=== PATIENT | male | born 1975 | race Caucasian/White ===

== ENCOUNTER 2016-09-11 14:19 | Emergency (ER) | payer SELFPAY ==
[2016-09-11 14:30] VITALS: BP 123/79
[2016-09-11] MEDS ORDERED: Tetan/Diph/Pertus SYR(Tdap)* 0.5 ML SYR(BOOSTRIX) use SYR IM ONE ×2 (15:11→15:15)
--- NOTE | 2016-09-11 15:29 | UC ---
Abdominal Pain Male HPI - HPI Summary HPI Summary: Patient is a [facility] patient who arrives with CC of LLQ abdominal pain x 2 weeks with severe cough and chest pain with cough. He is aon 2-12mg of Suboxone and ex drug abuser who is still receiving counseling. He denies current drug use other than rx suboxone. LLQ pain is 8/10, constant and stabbing. Chest pain is only present with cough. Endorses sweats and chills, but often will have these symptoms d/t suboxone. Patient of Dr. Pedraza. He states he called and made an appt for this weekend, but slept through the appt, stating he has been sleeping 16 hours per day with difficulty to arouse. He is smoker and c/o cough and was recently diagnosed with bronchitis by the [facility] at [facility]. Given albuterol without relief of symptoms. - History of Current Complaint Chief Complaint: UCRespiratory Stated Complaint: URI Time Seen by Provider: 09/11/16 14:37 Hx Obtained From: Patient Onset/Duration: Gradual Onset Timing: Constant Severity Initially: Moderate Severity Currently: Moderate Pain Intensity: 5 Pain Scale Used: 0-10 Numeric Location: Discrete At: LUQ, Epigastric Radiates: No Character: Aching, Sharp Aggravating Factor(s):: Nothing Alleviating Factor(s): Nothing Associated Signs And Symptoms: Positive: Diaphoresis, Cough, Constipation - Risk Factors Testicular Torsion: Negative Cardiac Risk Factors: Negative - Allergies/Home Medications Allergies/Adverse Reactions: Allergies Allergy/AdvReac Type Severity Reaction Status Date / Time Penicillins [PCN] Allergy Swelling Verified 09/11/16 14:29 Of Face,Lips,& Throat Home Medications: Home Medications Buprenorphine HCl-Naloxone HCl [Suboxone] 1 mis SL BID 09/11/16 [History Confirmed 09/11/16] Citalopram TAB* [CeleXA TAB*] 40 mg PO BEDTIME 09/11/16 [History Confirmed 09/11] Gabapentin [Neurontin 800 mg tab] 800 mg PO QID 09/11/16 [History Confirmed ] Tizanidine HCl 4 mg PO QID 09/11/16 [History Confirmed 09/11/16] PMH/Surg Hx/FS Hx/Imm Hx Previously Healthy: Yes - Surgical History Surgical History: Yes Surgery Procedure, Year, and Place: gall bladder - Family History Known Family History: Positive: Unknown - Social History Occupation: Unemployed Lives: With Family Alcohol Use: Occasionally Alcohol Amount: 1 beer daily Substance Use Type: None Smoking Status (MU): Light Every Day Tobacco Smoker Type: Cigarettes Review of Systems Constitutional: Negative Eyes: Negative Respiratory: Shortness Of Breath, Cough Cardiovascular: Negative Gastrointestinal: Abdominal Pain Neurovascular: Negative Musculoskeletal: Negative Neurological: Negative Psychological: Negative All Other Systems Reviewed And Are Negative: Yes Physical Exam Triage Information Reviewed: Yes Appearance: Well-Appearing, No Pain Distress, Well-Nourished Vital Signs: Initial Vital Signs Temp 95.3 F 09/11/16 14:23 Pulse 93 09/11/16 14:23 Resp 18 09/11/16 14:23 BP 123/79 09/11/16 14:23 Pulse Ox 98 09/11/16 14:23 Vital Signs Reviewed: Yes Eye Exam: Normal Neck exam: Normal Neck: Positive: Supple Respiratory: Positive: Rhonchi Cardiovascular Exam: Normal Cardiovascular: Positive: RRR Abdomen Description: Positive: Soft, Other: - epigastric pain; LLQ pain on palpation; normal bowel sounds Musculoskeletal Exam: Normal Musculoskeletal: Positive: Strength Intact Psychological Exam: Normal Psychological: Positive: Normal Response To Family Skin Exam: Normal Abd Pain Male Course/Dx - Course Course Of Treatment: Patient evaluated for abdominal pain and chest pain with cough and diaphoresis. He is on suboxone 2 - 12mg tablets per day through Dr. Pedraza and continues to go to [facility] twice per week. Advised the patient cannot r/o diverticulitis or other pathologies of LLQ pain, but will get Xray to assess for constipation. Xray of abd shows large amount of stool in the colon with free air. Chest Xray shows no pathologies. Rx for Magnesium Citrate , senna for 2 days after mag citrate and increased water intake. Fiber foods encouraged and list given. Follow up to ED tomorrow if symptoms persist despite mag citrate. Patient made aware of results and plan and is OK with discharge. Medications reviewed with patient. - Differential Dx/Clinical Impression Differential Diagnosis/HQI/PQRI: Bowel Obstruction, Hepatitis, Ischemic Bowel, Urinary Tract Infection Provider Diagnoses: Constipation Discharge - Discharge Plan Condition: Stable Disposition: HOME Prescriptions: Magnesium CITRATE* [Citrate of Magnesia*] 300 ml PO ONCE #1 btl Senna TAB* [Senokot TAB*] 1 tab PO BEDTIME PRN #10 tab PRN Reason: Constipation Patient Education Materials: Magnesium Citrate (By mouth), Constipation (ED), High Fiber Diet (ED) Forms: *Gen. Provider Communication Referrals: Ramírez Pedraza MD [Medical Doctor] - No Primary Care Phys,NOPCP [Primary Care Provider] - Additional Instructions: Foods to Eat: Split Peas. Fiber: 16.3 grams per cup, cooked. ... Lentils. Fiber: 15.6 grams per cup, cooked. ... Black Beans. Fiber: 15 grams per cup, cooked. ... Rothman Beans. Fiber: 13.2 grams per cup, cooked. ... Artichokes. Fiber: 10.3 grams per medium vegetable, cooked. ... Peas. ... Broccoli. ... [place] Sprouts. Barley... 7 grain unbleached bread Follow up with Dr. Pedraza this week or next week. Drink 3 liters or more of water per day. Magnesium citrate as prescribed Senna every other night, then every third night, and so on until feeling improved.
--- NOTE | 2016-09-11 15:30 | RAD ---
HISTORY: Chest pain, cough, fever COMPARISONS: August 25, 2009 VIEWS: 2: Frontal dual-energy and lateral views of the chest. FINDINGS: CARDIOMEDIASTINAL SILHOUETTE: The cardiomediastinal silhouette is normal. KEVIN: The kevin are normal. PLEURA: The costophrenic angles are sharp. No pleural abnormalities are noted. LUNG PARENCHYMA: The lungs are clear. ABDOMEN: The upper abdomen is clear. There is no subphrenic gas. BONES AND SOFT TISSUES: No bone or soft tissue abnormalities are noted. OTHER: None. IMPRESSION: NO ACTIVE CARDIOPULMONARY DISEASE.
--- NOTE | 2016-09-11 15:40 | RAD ---
HISTORY: Abdominal pain COMPARISONS: CT dated August 31, 2010 VIEWS: Frontal supine and upright views of the abdomen. FINDINGS: BOWEL: There is a nonobstructive bowel gas pattern. There is a large amount of stool within the colon. CALCULI: There are no abnormal calculi. BONES AND SOFT TISSUES: Degenerative changes are noted OTHER FINDINGS: The lung bases are clear. There is no subphrenic gas. IMPRESSION: NONOBSTRUCTIVE BOWEL GAS PATTERN. LARGE AMOUNT OF STOOL WITHIN THE COLON.
== END 2016-09-11 16:11 | disposition home or self-care (01) ==
LOC: UCEAST 14:19
DX: K59.00 Constipation, unspecified (principal); F17.210 Nicotine dependence, cigarettes, uncomplicated; Z79.891 Long term (current) use of opiate analgesic
CPT/HCPCS: 71020; 74020; 90715; 99212; G0463

== ENCOUNTER 2016-09-12 09:01 | Emergency (ER) | payer OTHER ==
--- NOTE | 2016-09-12 10:07 | ED ---
Abdominal Pain/Male - HPI Summary HPI Summary: Pt here w/ LLQ ab pain x 1 week. Started as mild irritation but worse past couple of days. Admits to smaller, less complete BM's since increasing suboxone from 8mg to 12 mg. Last BM today - small, soft. Has not been taking medications (ie stool softener, laxatives, etc) to help w/ constipation but was seen at yesterday and recommended he take mag citrate w/ senna. Has not taken this yet as he was unable to get to pharmacy (lives in [place] and requires medicaid cab) . Had an ab XR yesterday revealing no signs of obstruction but did have a large amount of stool present. Pt denies fever, chills, N/V/D, hematochezia but has been quite fatigued over the weekend - sleeping much more than usual. H/o cholecystectomy 2006 - has cut back on fried foods - reports he only has pain w / eating "cheap burger" since surgery until recently. Reports indigestion and "egg burps" w/ vomiting at times if he eats too much greasy food over the past year. No known h/o liver issues, pancreatitis, bowel obstruction, diverticulitis or other diagnosed digestive issues. 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 Pain Intensity: 4 - Allergies/Home Medications Allergies/Adverse Reactions: Allergies Allergy/AdvReac Type Severity Reaction Status Date / Time Penicillins [PCN] Allergy Swelling Verified 09/12/16 09:20 Of Face,Lips,& Throat PMH/Surg Hx/FS Hx/Imm Hx Previously Healthy: Yes Endocrine/Hematology History: Denies: Hx Anticoagulant Therapy, Hx Blood Disorders, Hx Diabetes, Autoimmune Disease Respiratory History: Denies: Hx Asthma, Hx Chronic Obstructive Pulmonary Disease (COPD) GI History: Reports: Hx Gall Bladder Disease - h/o cholecystectomy Denies: Hx Cirrhosis, Hx Crohn's Disease, Hx Diverticulosis, Hx Gastrointestinal Bleed, Hx Hiatal Hernia, Hx Irritable Bowel, Hx Jaundice, Hx Obstructive Bowel, Hx Ulcer History: Denies: Hx Acute Renal Failure, Hx Kidney Infection, Hx Kidney Stones Musculoskeletal History: Reports: Hx Back Problems - DDD - "sciatica" - has had "scan", Other Musculoskeletal History Opthamlomology History: Reports: Other Sensory Impairments - blind Psychiatric History: Reports: Hx Substance Abuse - h/o opioid use - curretly controlled w/ suboxone - Surgical History Surgery Procedure, Year, and Place: cholecystectomy 2006 Infectious Disease History: No Infectious Disease History: Denies: Hx Clostridium Difficile, Hx Hepatitis, Hx Human Immunodeficiency Virus (HIV), Traveled Outside the [place] in Last 30 Days - Family History Known Family History: Positive: Unknown - Social History Occupation: Disabled - legally blind Lives: With Family Alcohol Use: None Hx Substance Use: Yes Substance Use Type: Reports: Heroin - not currently using Hx Tobacco Use: Yes Smoking Status (MU): Current Every Day Smoker Type: Cigarettes Amount Used/How Often: 1PPD Review of Systems Positive: Fatigue - see HPI. Negative: Fever, Chills Negative: Drainage, Erythema ENT: Other - URI sx - improving from previous visit Negative: Sore Throat, Ear Ache Cardiovascular: Negative Positive: Cough - recovering from URI Gastrointestinal: Other - see HPI Negative: dysuria, discharge, frequency, flank pain Musculoskeletal: Other - h/o sciatica Skin: Negative Neurological: Negative Psychological: Normal All Other Systems Reviewed And Are Negative: Yes Physical Exam Triage Information Reviewed: Yes Vital Signs On Initial Exam: Initial Vitals Temp Pulse Resp BP Pulse Ox 97.7 F 90 20 123/73 94 09/12/16 09:02 09/12/16 09:02 09/12/16 09:02 09/12/16 09:02 09/12/16 09:02 Vital Signs Reviewed: Yes Appearance: Positive: Well-Appearing, No Pain Distress, Obese Skin: Positive: Warm, Dry Head/Face: Positive: Normal Head/Face Inspection Eyes: Positive: Conjunctiva Clear, Other: - amblyopia ENT: Positive: Hearing grossly normal Dental: Positive: Gross Decay/Caries @ Respiratory/Lung Sounds: Positive: Breath Sounds Present, Wheezes - mid Lt lobe. Negative: Decreased Breath Sounds, Rales, Rhonchi, Stridor Cardiovascular: Positive: Normal, RRR Abdomen Description: Positive: Other: - vast ab girth - TTP over epigastric region and continues along LUQ, Lt side and LLQ - no rebounding; RLQ NTTP Bowel Sounds: Positive: Hypoactive Musculoskeletal: Positive: Normal, Strength/ROM Intact Neurological: Positive: Sensory/Motor Intact, Alert, Oriented to Person Place, Time Psychiatric: Positive: Normal - Santana Coma Scale Coma Scale Total: 15 Diagnostics - Vital Signs Vital Signs Temp Pulse Resp BP Pulse Ox 09/12/16 09:15 87 96 09/12/16 09:13 134/82 09/12/16 09:06 97.7 F 84 20 123/73 95 09/12/16 09:02 97.7 F 90 20 123/73 94 - Laboratory Result Diagrams: 09/12/16 10:50 09/12/16 13:11 Lab Statement: Any lab studies that have been ordered have been reviewed, and results considered in the medical decision making process. Re-Evaluation - Re-Evaluation First Eval Change: Improved - pt reports BM during his course of stay - small but did provide some relief. Abdominal Pain Fem Course/Dx - Course Course Of Treatment: Pt presents w/ constipation and Lt sided ab pain x days. He has not tried constipation medication as directed as he couldn't get a ride to pharmacy. Concerned about diverticulitis and agrees to CT scan. Upon reviewing labs and scan, pt appears to have fatty liver, constipation and diverticulosis w/o diverticulitis. These findings correlate with pt's sx and lifestyle habits. Encouraged diet changes to healthy fats and in moderation - discussion about alternatives to current fats consumed. Also reviewed importance of controlling constipation w/ diet, supplements, and may benefit from reducing suboxone. Pt agrees to try mag citrate here today and f/u w/ PCP. If still no BM and pain worsens, will return to ED. - Diagnoses Provider Diagnoses: Constipation, Fatty liver, Diverticulosis Discharge - Discharge Plan Condition: Stable Disposition: HOME Patient Education Materials: Constipation (ED), Diverticulosis (ED), Non- Alcoholic Fatty Liver Disease (ED) Forms: *Work Release Referrals: Ramírez Pedraza MD [Medical Doctor] - Additional Instructions: You appear to have constipation today - this may be addressed by taking magnesium citrate as soon as you get home which should trigger bowel movement(s ) within 12-24 hours. If you develop diarrhea, drink gatorade to prevent dehydration. If you do not have a satisfying bowel movement, please continue a daily laxative supplement. You may try combining both miralax and citrucel, 1/2 scoop of each with plenty of water. It was discussed that the cause of your constipation may be from an increase in your suboxone dose from 8mg to 12 mg. You also shared that you have been fatigued over the weekend which could be a result of too high of a dose of suboxone. Please discuss with PCP. You were also found to have diverticulosis, a condition triggered by constipation. Furthermore, you appear to have a fatty liver. You may control both of these conditions by diet. Discuss with PCP or seek nutrition consult. Please call PCP today to schedule appointment for follow-up within 1 week. *If you develop severe abdominal pain, fever, intractable vomiting, return to ED
[2016-09-12 10:59] LABS: Hematocrit 45 % (42-52); Hemoglobin 15.1 g/dl (14.0-18.0); Mean Corpuscular HGB Conc 34 g/dl (31-36); Mean Corpuscular Hemoglobin 30 pg (27-31); Mean Corpuscular Volume 90 fL (80-94); Mean Platelet Volume 8 um3 (7.4-10.4); Red Blood Count 5.01 10^6/ul (4.0-5.4); Red Cell Distribution Width 14 % (10.5-15); White Blood Count 11.2 10^3/ul (3.5-10.8)
[2016-09-12 11:08] LABS: Add Diff/Slide Review? Slide Review Added; Comments Flag Yes
[2016-09-12 13:13] LABS: Urine Bacteria Absent (Absent); Urine Bilirubin Negative (Negative); Urine Glucose Negative (Negative); Urine Nitrite Negative (Negative)
[2016-09-12 13:44] LABS: Albumin 3.7 g/dL (3.2-5.2); BUN/Creatinine Ratio 12.2 (8-20); C Reactive Protein 19.63 mg/L (< 5.00); Calcium 9.3 mg/dL (8.6-10.3); EGFR Non-African American 92.5 (>60); Globulin 3.5 g/dL (2-4); Potassium 4.5 mmol/L (3.5-5.0); Total Bilirubin 0.4 mg/dL (0.2-1.0); Total Protein 7.2 g/dL (6.4-8.9)
[2016-09-12] MEDS ORDERED: Iohexol 300* (CONTRAST) 10 ML SDV IV ONE (14:10)
--- NOTE | 2016-09-12 14:57 | RAD ---
INDICATION: Left lower quadrant abdominal pain constipation and fatigue. COMPARISON: Comparison is made with a prior CT of the abdomen and pelvis from June 01, 2010. TECHNIQUE: A CT scan of the abdomen and pelvis was performed with intravenous and oral contrast following intravenous injection of 145 ml of Omnipaque 300 nonionic contrast. Contiguous axial sections were obtained from the lung bases through the symphysis pubis. Images were reconstructed in the coronal and sagittal planes. FINDINGS: The lung bases are clear. No pleural effusion is present. The liver and spleen are normal in size without significant focal abnormality. The liver is decreased in attenuation consistent with fatty infiltration. The patient is status post cholecystectomy. The pancreas appears to be within normal limits. The kidneys and adrenal glands are normal in size. No hydronephrosis is seen. No significant focal renal abnormality is seen. The aorta is normal in caliber and demonstrates homogeneous contrast opacification. No significant enlarged retroperitoneal lymph nodes are seen. The stomach, small and large bowel appear nondistended. The appendix is within normal limits. There is mild descending and sigmoid diverticulosis without evidence for diverticulitis. There is no evidence for colitis. There is a small periumbilical hernia containing fat. There are small bilateral inguinal hernias containing fat. No free intraperitoneal air or fluid is seen. No significant focal osseous abnormality is seen. IMPRESSION: 1. NO EVIDENCE FOR ACUTE INTRA-ABDOMINAL ABNORMALITY OR CAUSE FOR THE PATIENT'S ABDOMINAL PAIN IS SEEN. 2. STATUS POST CHOLECYSTECTOMY AND HEPATIC STEATOSIS.
[2016-09-12] MEDS ORDERED: Magnesium CITRATE* 300 ML BTL PO ONE (15:58)
[2016-09-12 16:30] VITALS: BP 121/72
== END 2016-09-12 16:30 | disposition home or self-care (01) ==
LOC: ED 09:01
DX: K57.90 Diverticulosis of intestine, part unspecified, without perforation or abscess without bleeding (principal); R10.32 Left lower quadrant pain; K59.00 Constipation, unspecified; K76.0 Fatty (change of) liver, not elsewhere classified
CPT/HCPCS: 36415; 74177; 80053; 81003; 81015; 82150; 83605; 83690; 85025; 86140; 87086; 99284; A9270-GY; Q9967

== ENCOUNTER 2016-10-23 10:43 | Emergency (ER) | payer OTHER ==
[2016-10-23 11:35] VITALS: BP 134/90
--- NOTE | 2016-10-23 12:45 | UC ---
Respiratory Complaint HPI - HPI Summary HPI Summary: 41 y/o blind male who presents to the urgent care c/o persistent productive cough w/ SOB since 10/19/2016. Pt states cough is producing a green phlegm,w/ sinus congestion and yellowish nasal drainage. He hasn't taking his temp, but he has felt hot at home. Pt has been taking Tylenol, Dayquil at home to alleviate symptoms. He states he has pneumonias in the past. Pt denies SOB, chest pain, abdominal pain, N/V/D. Pt has not other complains - History of Current Complaint Chief Complaint: UCRespiratory Stated Complaint: URI Time Seen by Provider: 10/23/16 12:15 Hx Obtained From: Patient Onset/Duration: Gradual Onset, Lasting Days, Still Present Timing: Constant Severity Initially: Mild Severity Currently: Moderate Pain Intensity: 0 Pain Scale Used: 0-10 Numeric Character: Cough: Productive - yellowish phlegm Aggravating Factors: Nothing Alleviating Factors: OTC Meds Associated Signs And Symptoms: Positive: Fever - at home, Nasal Congestion. Negative: Dyspnea, Wheezing - Risk Factors Pulmonary Embolism Risk Factors: Negative Cardiac Risk Factors: Negative Pseudomonas Risk Factors: Negative Tuberculosis Risk Factors: Negative - Allergies/Home Medications Allergies/Adverse Reactions: Allergies Allergy/AdvReac Type Severity Reaction Status Date / Time Penicillins [PCN] Allergy Swelling Verified 10/23/16 11:35 Of Face,Lips,& Throat PMH/Surg Hx/FS Hx/Imm Hx Previously Healthy: Yes Other GI/ History: constipation Other History Of: Negative For: Anticoagulant Therapy - Surgical History Surgical History: Yes Surgery Procedure, Year, and Place: cholecystectomy 2006 - Family History Known Family History: Positive: Hypertension - Social History Occupation: Disabled Lives: With Family Alcohol Use: Occasionally Alcohol Amount: 1 beer daily Substance Use Type: None, Heroin Smoking Status (MU): Current Every Day Smoker Type: Cigarettes Amount Used/How Often: 1PPD Review of Systems Constitutional: Fever - mild at home Skin: Negative Eyes: Negative ENT: Nasal Discharge - yellow Respiratory: Cough - productive w/ yellowish discharge Cardiovascular: Negative Gastrointestinal: Negative Genitourinary: Negative Motor: Negative Neurovascular: Negative Musculoskeletal: Negative Neurological: Negative Psychological: Negative All Other Systems Reviewed And Are Negative: Yes Physical Exam Triage Information Reviewed: Yes Appearance: Well-Appearing, No Pain Distress, Well-Nourished, Obese Vital Signs: Initial Vital Signs Temp 98.5 F 10/23/16 11:29 Pulse 95 10/23/16 11:29 Resp 18 10/23/16 11:29 BP 134/90 10/23/16 11:29 Pulse Ox 97 10/23/16 11:29 Vital Signs Reviewed: Yes Eye Exam: Normal Eyes: Positive: Conjunctiva Clear - PERRLA, fundi grossly normal ENT: Positive: Normal ENT inspection, Hearing grossly normal, Pharynx normal, Nasal congestion - edematous nasal mucosa, Nasal drainage - clear, TMs normal. Negative: Tonsillar swelling, Tonsillar exudate Dental Exam: Normal Neck exam: Normal Neck: Positive: Supple, Nontender, No Lymphadenopathy Respiratory Exam: Normal Respiratory: Positive: Chest non-tender, Lungs clear, Normal breath sounds Cardiovascular Exam: Normal Cardiovascular: Positive: RRR, No Murmur, Pulses Normal, Brisk Capillary Refill Abdominal Exam: Normal Abdomen Description: Positive: Nontender, No Organomegaly, Soft. Negative: CVA Tenderness (R), CVA Tenderness (L) Bowel Sounds: Positive: Present Musculoskeletal Exam: Normal Musculoskeletal: Positive: Strength Intact, ROM Intact, No Edema Neurological Exam: Normal Psychological Exam: Normal Skin Exam: Normal UC Diagnostic Evaluation - Laboratory O2 Sat by Pulse Oximetry: 97 Respiratory Course/Dx - Course Course Of Treatment: 41 y/o blind male who presents to the urgent care c/o persistent productive cough w/ SOB since 10/19/2016. Pt states cough is producing a green phlegm,w/ sinus congestion and yellowish nasal drainage. He hasn't taking his temp, but he has felt hot at home. Pt has been taking Tylenol , Dayquil at home to alleviate symptoms. He states he has pneumonias in the past. Pt denies SOB, chest pain, abdominal pain, N/V/D. Hx obtained. Chest X- ray ordered since Pt HX of pneumonias. Chest X-ray impression: no active pulmonary disease. Pt Rx tessalon tabs PO and Albuterol inhaler to alleviate symptoms of cough and bronchospasm. Pt BP mildy elevated , advised to decrease salt in diet and monitor BP if continues to be elevated to f/u with his PCP. Pt D/C home stable and advised to increase fluid intake, rest and if symptoms do not improve to f/u with PCP for further evaluation and treatment. Pt understood and agreed. - Differential Dx/Diagnosis Differential Diagnosis/HQI/PQRI: Asthma, Bronchitis, Influenza, Laryngitis, Lower Resp Infection, Sinusitis Provider Diagnoses: 1- upper respiratory infection. 2-Elevated blood pressure w /o Hx of HTN Discharge - Discharge Plan Condition: Stable Disposition: HOME Prescriptions: Albuterol HFA INHALER* [Ventolin HFA Inhaler*] 1 - 2 puff INH Q4H PRN #1 mdi PRN Reason: Cough Benzonatate CAP* [Tessalon 100 MG CAP*] 100 mg PO TID #21 cap Fluticasone NASAL SPRAY 50MCG* [Flonase NASAL SPRAY 50MCG*] 2 spray BOTH NARES DAILY #1 btl Patient Education Materials: Upper Respiratory Infection (ED), Low Sodium Diet (ED) Forms: *Work Release Referrals: Ramírez Pedraaz MD [Primary Care Provider] - If Needed Additional Instructions: 1-Please take your medications as directed to alleviate symptoms of URI. Increase fluid intake rest and eat well. If symptoms do not improve or worsen please f/u with your PCP for further evaluation and treatment. 2- Your BP today is mildly elevated today, decrease salt in your diet and f/u with your PCP for further management
--- NOTE | 2016-10-23 13:19 | RAD ---
HISTORY: Shortness of breath and chest congestion COMPARISONS: September 11, 2016 VIEWS: 4: Frontal dual-energy and lateral views of the chest. FINDINGS: CARDIOMEDIASTINAL SILHOUETTE: The cardiomediastinal silhouette is normal. KEVIN: The kevin are normal. PLEURA: The costophrenic angles are sharp. No pleural abnormalities are noted. LUNG PARENCHYMA: The lungs are clear. ABDOMEN: The upper abdomen is clear. There is no subphrenic gas. BONES AND SOFT TISSUES: No bone or soft tissue abnormalities are noted. OTHER: None. IMPRESSION: NO ACTIVE CARDIOPULMONARY DISEASE.
== END 2016-10-23 14:15 | disposition home or self-care (01) ==
LOC: UCEAST 10:43
DX: J06.9 Acute upper respiratory infection, unspecified (principal); R03.0 Elevated blood-pressure reading, without diagnosis of hypertension; K59.00 Constipation, unspecified; F17.210 Nicotine dependence, cigarettes, uncomplicated; E66.9 Obesity, unspecified; Z90.49 Acquired absence of other specified parts of digestive tract; Z88.0 Allergy status to penicillin
CPT/HCPCS: 71020; 99212; G0463

== ENCOUNTER 2018-01-07 11:56 | Emergency (ER) | payer MEDICARE, MEDICAID ==
[2018-01-07 12:57] VITALS: BP 125/71
--- NOTE | 2018-01-07 13:06 | UC ---
Respiratory Complaint HPI - HPI Summary HPI Summary: This patient is a 42 year old M [place] [facility] [place] his girlfriend with a chief complaint of URI sx for the last three days. The patient rates the pain 5/10 in severity. Symptoms alleviated by ibuprofen. Patient reports fever, congestion, cough, SOB, pain with coughing, and productive cough. - History of Current Complaint Chief Complaint: UCRespiratory Stated Complaint: FEVER SORE THROAT COUGH Time Seen by Provider: 01/07/18 12:33 Hx Obtained From: Patient Onset/Duration: Lasting Days - 3, Still Present Timing: Constant Severity Currently: Moderate Pain Intensity: 5 Pain Scale Used: 0-10 Numeric Character: Cough: Productive Alleviating Factors: OTC Meds Associated Signs And Symptoms: Positive: Fever, URI - Allergies/Home Medications Allergies/Adverse Reactions: Allergies Allergy/AdvReac Type Severity Reaction Status Date / Time Penicillins Allergy Swelling Verified 01/07/18 12:57 Of Face,Lips,& Throat PMH/Surg Hx/FS Hx/Imm Hx - Additional Past Medical History Additional PMH: visually impaired, Neurological History: Other Other Neurological History: nerve damage Psychological History: Anxiety, Depression, Post Traumatic Stress Disorder Other History Of: Negative For: Anticoagulant Therapy - Surgical History Surgical History: Yes Surgery Procedure, Year, and Place: cholecystectomy 2006 - Family History Known Family History: Positive: Unknown, Hypertension - Social History Alcohol Use: Occasionally Alcohol Amount: 1 beer daily Substance Use Type: Prescribed Substance Use Comment - Amount & Last Used: suboxone Smoking Status (MU): Former Smoker Type: Cigarettes Amount Used/How Often: 1PPD When Did the Patient Quit Smoking/Using Tobacco: vapes now Review of Systems Constitutional: Fever, Fatigue ENT: Sinus Congestion Respiratory: Shortness Of Breath, Cough, Other - pain with coughing All Other Systems Reviewed And Are Negative: Yes Physical Exam - Summary Physical Exam Summary: VITAL SIGNS: Reviewed. GENERAL: Patient is a well-developed and nourished male who is lying comfortable in the stretcher. Patient is not in any acute respiratory distress. HEAD AND FACE: Normocephalic EYES: PERRLA, EOMI x 2. EARS: Hearing grossly intact. MOUTH: Oropharynx within normal limits. NECK: Supple, trachea is midline, no adenopathy, no JVD, no carotid bruit. CHEST: Symmetric, no tenderness at palpation LUNGS: Coarse breath sounds CVS: Regular rate and rhythm, S1 and S2 present, no murmurs or gallops appreciated. ABDOMEN: Soft, non-tender. Bowel sounds are normal. No abdominal abnormal pulsations. EXTREMITIES: Full ROM in all major joints, no edema, no cyanosis or clubbing. NEURO: Alert and oriented x 3. No acute neurological deficits. Speech is normal and follows commands. SKIN: Dry and warm Triage Information Reviewed: Yes Vital Signs: Initial Vital Signs Temp 97.5 F 01/07/18 12:52 Pulse 95 01/07/18 12:52 Resp 20 01/07/18 12:52 BP 125/71 01/07/18 12:52 Pulse Ox 94 01/07/18 12:52 Vital Signs Reviewed: Yes Diagnostic Evaluation - Laboratory O2 Sat by Pulse Oximetry: 94 - Radiology Radiology Interpretation Completed By: Radiologist - CXR:NO ACTIVE CARDIOPULMONARY DISEASE. Dr Miller has reviewed this report. Respiratory Course/Dx - Course Course Of Treatment: Patient is a 42-year-old male who presents to the urgent care with chief complaint of having cough with occasional phlegm. He reports fever however is only tactile fever. Chest x-ray impression: No acute pathology. Rapid strep is negative. I believe the patient has a viral infection therefore he will be given a prescription for Tessalon tablets on follow-up with the primary care physician. Patient was instructed to go to the ED or follow-up with the primary care physician office if the patient develops any chest pain, fevers, worsening symptoms. He understands and verbalizes understanding. - Differential Dx/Diagnosis Provider Diagnoses: Bronchitis Discharge - Sign-Out/Discharge Documenting (check all that apply): Patient Departure All imaging exams completed and their final reports reviewed: Yes - Discharge Plan Condition: Stable Disposition: HOME Prescriptions: Benzonatate CAP* [Tessalon 100 MG CAP*] 100 mg PO TID PRN #12 cap PRN Reason: Cough Patient Education Materials: Acute Bronchitis (ED) Forms: *Gen. Provider Communication Referrals: Farheen Kasper MD [Primary Care Provider] - Additional Instructions: Take medications as instructed and adhere to plan Take Acetaminophen or ibuprofen for pain or fever Increase your fluid intake Return to the or go to the emergency department if symptoms worsen Follow-up with primary care physician in next 2-3 days - Billing Disposition and Condition Condition: STABLE Disposition: Home - Attestation Statements Document Initiated by Scribe: Yes Documenting Scribe: Steven Thompson Provider For Whom Scribe is Documenting (Include Credential): Polo Miller MD Scribe Attestation: I, Steven Thompson , scribed for Polo Miller MD on 01/07/18 at 1341. Scribe Documentation Reviewed: Yes Provider Attestation: The documentation as recorded by the Steven garcia accurately reflects the service I personally performed and the decisions made by me, Polo Miller MD
--- NOTE | 2018-01-07 13:27 | RAD ---
HISTORY: cough COMPARISONS: October 23, 2016 VIEWS: 4: Frontal dual-energy and lateral views of the chest. FINDINGS: CARDIOMEDIASTINAL SILHOUETTE: The cardiomediastinal silhouette is normal. KEVIN: The kevin are normal. PLEURA: The costophrenic angles are sharp. No pleural abnormalities are noted. LUNG PARENCHYMA: The lungs are clear. ABDOMEN: The upper abdomen is clear. There is no subphrenic gas. BONES AND SOFT TISSUES: No bone or soft tissue abnormalities are noted. OTHER: None. IMPRESSION: NO ACTIVE CARDIOPULMONARY DISEASE.
== END 2018-01-07 14:08 | disposition home or self-care (01) ==
LOC: UCEAST 11:56
DX: J40 Bronchitis, not specified as acute or chronic (principal); Z88.0 Allergy status to penicillin; Z87.891 Personal history of nicotine dependence
CPT/HCPCS: 71046; 87651; 99212; G0463

== ENCOUNTER 2022-02-20 09:44 | Inpatient (IN) ==
[2022-02-20] MEDS ORDERED: NS 0.9% 1000 ml BAG 1,000 ML IV ONE (09:58)
[2022-02-20] MEDS ORDERED: Dexamethasone IV 4 MG/ML VIAL 1 ml VIAL IV SLOW PU ONE (09:59)
[2022-02-20 13:08] LABS: Hematocrit 45 % (42-52); Hemoglobin 14.6 g/dL (14.0-18.0); Mean Corpuscular HGB Conc 33 g/dL (31-36); Mean Corpuscular Hemoglobin 28 pg (27-31); Mean Corpuscular Volume 85 fL (80-94); Mean Platelet Volume 7.6 fL (7.4-10.4); Platelet Count 504 10^3/uL (150-450); Red Blood Count 5.26 10^6 /uL (4.18-5.48); Red Cell Distribution Width 15 % (10-15); White Blood Count 18.8 10^3/uL (3.5-10.8)
[2022-02-20 13:37] LABS: Albumin 3.6 g/dL (3.2-5.2); C Reactive Protein 247.79 mg/L (<8.01); Calcium 9.2 mg/dL (8.6-10.3); Globulin 3.7 g/dL (2-4); Potassium 3.7 mmol/L (3.5-5.0); Total Bilirubin 0.6 mg/dL (0.2-1.0); Total Protein 7.3 g/dL (6.4-8.9); eGFR CKD-EPI 115.2 (>60)
[2022-02-20 14:26] LABS: ABS Lymphocytes 1.4 10^3/ul (1.0-4.8); ABS Monocytes 1.9 10^3/ul (0-0.8); ABS Neutrophils 15.5 10^3/ul (1.5-7.7); Eosinophil % 0.2 %; Lymphocyte % 7.4 %; Nucleated Red Blood Cells % 0.2
[2022-02-20 14:28] LABS: RBC Morphology Normal (Normal)
[2022-02-20 14:37] LABS: High Sensitivity Troponin 1 Hr 5 pg/mL (<20)
[2022-02-20 21:09] LABS: Hepatitis C Antibody Reactive (Negative)
[2022-02-20] MEDS: Buprenorp/Nalox 8-2 MG SL TAB SL SCH (22:05)
[2022-02-20] MEDS: Enoxaparin 40 MG/0.4 ML SYR SUBCUT SCH (22:05)
[2022-02-21 06:17] LABS: Hematocrit 40 % (42-52); Hemoglobin 13.5 g/dL (14.0-18.0); Mean Corpuscular HGB Conc 34 g/dL (31-36); Mean Corpuscular Hemoglobin 28 pg (27-31); Mean Corpuscular Volume 84 fL (80-94); Mean Platelet Volume 7.6 fL (7.4-10.4); Platelet Count 483 10^3/uL (150-450); Red Blood Count 4.76 10^6 /uL (4.18-5.48); Red Cell Distribution Width 15 % (10-15)
[2022-02-21 06:35] LABS: ABS Eosinophils 0.1 10^3/ul (0-0.6); ABS Lymphocytes 2.3 10^3/ul (1.0-4.8); ABS Monocytes 2.2 10^3/ul (0-0.8); ABS Neutrophils 14.4 10^3/ul (1.5-7.7); Eosinophil % 0.3 %; Lymphocyte % 11.9 %; Nucleated Red Blood Cells % 0.1
[2022-02-21 06:38] LABS: Potassium 3.9 mmol/L (3.5-5.0); eGFR CKD-EPI 114.7 (>60)
[2022-02-21] MEDS: Venlafaxine XR 75 mg PO SCH (08:53)
[2022-02-21] MEDS: Buprenorp/Nalox 8-2 MG SL TAB SL SCH ×2 (08:53→20:34)
[2022-02-21] MEDS: Enoxaparin 40 MG/0.4 ML SYR SUBCUT SCH (20:32)
[2022-02-22 06:30] LABS: Hematocrit 38 % (42-52); Hemoglobin 12.7 g/dL (14.0-18.0); Mean Corpuscular HGB Conc 34 g/dL (31-36); Mean Corpuscular Hemoglobin 28 pg (27-31); Mean Corpuscular Volume 84 fL (80-94); Mean Platelet Volume 7.6 fL (7.4-10.4); Platelet Count 410 10^3/uL (150-450); Red Blood Count 4.52 10^6 /uL (4.18-5.48); Red Cell Distribution Width 15 % (10-15); White Blood Count 19.9 10^3/uL (3.5-10.8)
[2022-02-22] MEDS ORDERED: guaiFENesin 100 mg/5 ml LIQ unit dose cup PO ONE (08:33)
[2022-02-22] MEDS: Venlafaxine XR 75 mg PO SCH (10:51)
[2022-02-22] MEDS: Buprenorp/Nalox 8-2 MG SL TAB SL SCH ×2 (10:51→21:03)
[2022-02-22] MEDS ORDERED: Vancomycin 1,000 MG in NS 0.9% 250 ml 250 ML IVPB ONE (15:00)
[2022-02-22] MEDS ORDERED: Furosemide 20 mg/2 ml IV VIAL IV ONE (15:04)
[2022-02-22] MEDS: guaiFENesin 100 mg/5 ml LIQ unit dose cup PO PRN (16:31)
[2022-02-22] MEDS: methylPREDNISolone SOD SUCC 40 mg/ml 1 ml VIAL IV SCH (18:59)
[2022-02-22] MEDS: Enoxaparin 40 MG/0.4 ML SYR SUBCUT SCH (21:01)
[2022-02-23] MEDS: Vancomycin 1000 MG in NS 0.9% 250 ML IVPB SCH ×3 (00:38→15:18)
[2022-02-23] MEDS: methylPREDNISolone SOD SUCC 40 mg/ml 1 ml VIAL IV SCH ×3 (02:30→17:17)
[2022-02-23 07:17] LABS: Hematocrit 36 % (42-52); Hemoglobin 12.5 g/dL (14.0-18.0); Mean Corpuscular HGB Conc 34 g/dL (31-36); Mean Corpuscular Hemoglobin 29 pg (27-31); Mean Corpuscular Volume 83 fL (80-94); Mean Platelet Volume 7.3 fL (7.4-10.4); Platelet Count 394 10^3/uL (150-450); Red Blood Count 4.37 10^6 /uL (4.18-5.48); Red Cell Distribution Width 15 % (10-15); White Blood Count 20.2 10^3/uL (3.5-10.8)
[2022-02-23 08:02] LABS: Calcium 8.5 mg/dL (8.6-10.3); eGFR CKD-EPI 116.8 (>60)
[2022-02-23] MEDS: Buprenorp/Nalox 8-2 MG SL TAB SL SCH ×2 (08:38→20:22)
[2022-02-23] MEDS: Venlafaxine XR 75 mg PO SCH (08:39)
[2022-02-23] MEDS ORDERED: Magnesium Hydroxide LIQ 30 ML UDC PO ONE (09:15)
[2022-02-23] MEDS: Nicotine PATCH 14 MG/24 HR PATCH TRANSDERM SCH (17:17)
[2022-02-23] MEDS: Enoxaparin 40 MG/0.4 ML SYR SUBCUT SCH (20:22)
[2022-02-24] MEDS: Vancomycin 1000 MG in NS 0.9% 250 ML IVPB SCH ×2 (01:37→08:16)
[2022-02-24] MEDS: methylPREDNISolone SOD SUCC 40 mg/ml 1 ml VIAL IV SCH (01:37)
[2022-02-24] MEDS ORDERED: Vancomycin Trough Check NOTE FOLLOW UP ONE (07:30)
[2022-02-24 07:44] LABS: Hematocrit 38 % (42-52); Hemoglobin 12.9 g/dL (14.0-18.0); Mean Corpuscular HGB Conc 34 g/dL (31-36); Mean Corpuscular Hemoglobin 29 pg (27-31); Mean Corpuscular Volume 84 fL (80-94); Mean Platelet Volume 7.2 fL (7.4-10.4); Platelet Count 457 10^3/uL (150-450); Red Blood Count 4.49 10^6 /uL (4.18-5.48); Red Cell Distribution Width 15 % (10-15); White Blood Count 23.6 10^3/uL (3.5-10.8)
[2022-02-24] MEDS: Venlafaxine XR 75 mg PO SCH (08:17)
[2022-02-24] MEDS: Nicotine PATCH 14 MG/24 HR PATCH TRANSDERM SCH (08:17)
[2022-02-24] MEDS: Buprenorp/Nalox 8-2 MG SL TAB SL SCH ×2 (08:17→20:57)
[2022-02-24 08:23] LABS: Calcium 8.6 mg/dL (8.6-10.3); Potassium 4.5 mmol/L (3.5-5.0)
[2022-02-24 08:28] LABS: eGFR CKD-EPI 116.8 (>60)
[2022-02-24] MEDS ORDERED: Sodium Chloride(INHALANT) 7% 4 ML NEB.SOLN INH ONE (08:30)
[2022-02-24 08:33] LABS: Vancomycin Trough 9.3 mcg/mL; eGFR CKD-EPI 117.3 (>60)
[2022-02-24 09:17] LABS: Polychromasia 1+
[2022-02-24 09:18] LABS: ABS Basophils 0.1 10^3/ul (0-0.2); ABS Lymphocytes 1.5 10^3/ul (1.0-4.8); ABS Monocytes 1.4 10^3/ul (0-0.8); ABS Neutrophils 20.6 10^3/ul (1.5-7.7); Lymphocyte % 6.5 %
[2022-02-24] MEDS ORDERED: Iohexol 350 (CONTRAST) 500 ML MDV IV ONE (09:24)
[2022-02-24] MEDS: Vancomycin 1,250 MG in NS 0.9% 250 ml 250 ML IVPB SCH (16:34)
[2022-02-24] MEDS: guaiFENesin 100 mg/5 ml LIQ unit dose cup PO PRN (16:39)
[2022-02-24] MEDS: Enoxaparin 40 MG/0.4 ML SYR SUBCUT SCH (20:56)
[2022-02-25] MEDS: Vancomycin 1,250 MG in NS 0.9% 250 ml 250 ML IVPB SCH ×4 (00:35→23:59)
[2022-02-25 05:53] LABS: Hematocrit 40 % (42-52); Hemoglobin 13.5 g/dL (14.0-18.0); Mean Corpuscular HGB Conc 34 g/dL (31-36); Mean Corpuscular Hemoglobin 28 pg (27-31); Mean Corpuscular Volume 84 fL (80-94); Mean Platelet Volume 7.1 fL (7.4-10.4); Platelet Count 464 10^3/uL (150-450); Red Blood Count 4.78 10^6 /uL (4.18-5.48); Red Cell Distribution Width 15 % (10-15); White Blood Count 21.9 10^3/uL (3.5-10.8)
[2022-02-25 06:25] LABS: Calcium 8.3 mg/dL (8.6-10.3); eGFR CKD-EPI 114.7 (>60)
[2022-02-25 06:29] LABS: ABS Basophils 0.1 10^3/ul (0-0.2); ABS Eosinophils 0.1 10^3/ul (0-0.6); ABS Lymphocytes 2.3 10^3/ul (1.0-4.8); ABS Monocytes 1.3 10^3/ul (0-0.8); ABS Neutrophils 18.1 10^3/ul (1.5-7.7); Eosinophil % 0.4 %; Lymphocyte % 10.6 %; Nucleated Red Blood Cells % 0.1
[2022-02-25] MEDS: Nicotine PATCH 14 MG/24 HR PATCH TRANSDERM SCH (09:04)
[2022-02-25] MEDS: Buprenorp/Nalox 8-2 MG SL TAB SL SCH ×2 (09:05→19:36)
[2022-02-25] MEDS: Venlafaxine XR 75 mg PO SCH (09:05)
[2022-02-25] MEDS: Senna TAB 8.6 mg TAB PO SCH (19:35)
[2022-02-25] MEDS: Polyethylene Glycol 3350 17 GM PACKET PO SCH (19:36)
[2022-02-25] MEDS: Enoxaparin 40 MG/0.4 ML SYR SUBCUT SCH (19:36)
[2022-02-26 06:44] LABS: Hematocrit 38 % (42-52); Hemoglobin 12.6 g/dL (14.0-18.0); Mean Corpuscular HGB Conc 33 g/dL (31-36); Mean Corpuscular Hemoglobin 28 pg (27-31); Mean Corpuscular Volume 84 fL (80-94); Mean Platelet Volume 6.9 fL (7.4-10.4); Platelet Count 404 10^3/uL (150-450); Red Blood Count 4.51 10^6 /uL (4.18-5.48); Red Cell Distribution Width 15 % (10-15); White Blood Count 20.5 10^3/uL (3.5-10.8)
[2022-02-26 07:16] LABS: Calcium 8.3 mg/dL (8.6-10.3); Potassium 3.7 mmol/L (3.5-5.0); eGFR CKD-EPI 116.2 (>60)
[2022-02-26] MEDS: Vancomycin 1,250 MG in NS 0.9% 250 ml 250 ML IVPB SCH ×2 (08:01→16:01)
[2022-02-26] MEDS: Polyethylene Glycol 3350 17 GM PACKET PO SCH ×2 (08:07→20:43)
[2022-02-26] MEDS: Nicotine PATCH 14 MG/24 HR PATCH TRANSDERM SCH (08:11)
[2022-02-26] MEDS: Buprenorp/Nalox 8-2 MG SL TAB SL SCH ×2 (08:12→20:43)
[2022-02-26 08:45] LABS: ABS Basophils 0.1 10^3/ul (0-0.2); ABS Eosinophils 0.1 10^3/ul (0-0.6); ABS Lymphocytes 1.4 10^3/ul (1.0-4.8); ABS Monocytes 1.3 10^3/ul (0-0.8); ABS Neutrophils 17.6 10^3/ul (1.5-7.7); Eosinophil % 0.7 %; Lymphocyte % 6.6 %; Nucleated Red Blood Cells % 0.1
[2022-02-26] MEDS ORDERED: Furosemide 20 mg/2 ml IV VIAL IV ONE (10:06)
[2022-02-26] MEDS: Venlafaxine XR 75 mg PO SCH (10:41)
[2022-02-26] MEDS: metroNIDAZOLE IV 500 MG/100ML 500 MG/100 ML BAG IVPB SCH ×2 (10:42→23:00)
[2022-02-26] MEDS: Senna TAB 8.6 mg TAB PO SCH (20:43)
[2022-02-26] MEDS: Enoxaparin 40 MG/0.4 ML SYR SUBCUT SCH (20:44)
[2022-02-27] MEDS: Vancomycin 1,250 MG in NS 0.9% 250 ml 250 ML IVPB SCH ×2 (00:21→09:30)
[2022-02-27] MEDS ORDERED: Vancomycin Trough Check NOTE FOLLOW UP ONE (07:30)
[2022-02-27 07:50] LABS: Hematocrit 36 % (42-52); Hemoglobin 12.2 g/dL (14.0-18.0); Mean Corpuscular HGB Conc 34 g/dL (31-36); Mean Corpuscular Hemoglobin 28 pg (27-31); Mean Corpuscular Volume 83 fL (80-94); Mean Platelet Volume 6.8 fL (7.4-10.4); Platelet Count 410 10^3/uL (150-450); Red Blood Count 4.36 10^6 /uL (4.18-5.48); Red Cell Distribution Width 15 % (10-15)
[2022-02-27] MEDS: Polyethylene Glycol 3350 17 GM PACKET PO SCH ×2 (09:15→23:51)
[2022-02-27] MEDS: Venlafaxine XR 75 mg PO SCH (09:16)
[2022-02-27] MEDS: Nicotine PATCH 14 MG/24 HR PATCH TRANSDERM SCH (09:16)
[2022-02-27] MEDS: Buprenorp/Nalox 8-2 MG SL TAB SL SCH (09:17)
[2022-02-27] MEDS ORDERED: Magnesium Hydroxide LIQ 30 ML UDC PO PRN (11:23)
[2022-02-27] MEDS: metroNIDAZOLE IV 500 MG/100ML 500 MG/100 ML BAG IVPB SCH (11:23)
[2022-02-27] MEDS: Linezolid 600 MG IVPREMIX(*) 600 MG/300 ML BAG IVPB SCH ×2 (13:00→23:41)
[2022-02-27] MEDS: Magnesium Hydroxide LIQ 30 ML UDC PO SCH ×2 (13:43→19:05)
[2022-02-27] MEDS: guaiFENesin 100 mg/5 ml LIQ unit dose cup PO PRN (23:51)
[2022-02-27] MEDS: Buprenorp/Nalox 8-2 MG SL TAB PO SCH (23:52)
[2022-02-27] MEDS: Enoxaparin 40 MG/0.4 ML SYR SUBCUT SCH (23:53)
[2022-02-27] MEDS: Senna TAB 8.6 mg TAB PO SCH (23:53)
[2022-02-28 09:28] LABS: Hematocrit 37 % (42-52); Hemoglobin 12.1 g/dL (14.0-18.0); Mean Corpuscular HGB Conc 33 g/dL (31-36); Mean Corpuscular Hemoglobin 28 pg (27-31); Mean Corpuscular Volume 84 fL (80-94); Mean Platelet Volume 6.5 fL (7.4-10.4); Platelet Count 485 10^3/uL (150-450); Red Blood Count 4.38 10^6 /uL (4.18-5.48); Red Cell Distribution Width 15 % (10-15); White Blood Count 13.3 10^3/uL (3.5-10.8)
[2022-02-28] MEDS: Polyethylene Glycol 3350 17 GM PACKET PO SCH ×4 (09:28→22:01)
[2022-02-28] MEDS: Buprenorp/Nalox 8-2 MG SL TAB PO SCH ×2 (09:28→21:58)
[2022-02-28] MEDS: Magnesium Hydroxide LIQ 30 ML UDC PO SCH ×2 (09:29→21:57)
[2022-02-28] MEDS: Nicotine PATCH 14 MG/24 HR PATCH TRANSDERM SCH (09:30)
[2022-02-28] MEDS: Venlafaxine XR 75 mg PO SCH (09:30)
[2022-02-28 10:12] LABS: Calcium 8.2 mg/dL (8.6-10.3); Potassium 4.5 mmol/L (3.5-5.0); eGFR CKD-EPI 112.2 (>60)
[2022-02-28] MEDS ORDERED: Furosemide 20 mg/2 ml IV VIAL IV ONE (11:35)
[2022-02-28] MEDS: Linezolid 600 MG IVPREMIX(*) 600 MG/300 ML BAG IVPB SCH (13:13)
[2022-02-28] MEDS: Senna TAB 8.6 mg TAB PO SCH (21:56)
[2022-02-28] MEDS: Enoxaparin 40 MG/0.4 ML SYR SUBCUT SCH (21:59)
[2022-03-01] MEDS: Linezolid 600 MG IVPREMIX(*) 600 MG/300 ML BAG IVPB SCH ×2 (00:43→12:30)
[2022-03-01] MEDS ORDERED: Ondansetron 4 mg VIAL 2 MG/ML 2 ml VIAL IV ONE (01:22)
[2022-03-01 06:06] LABS: Hematocrit 34 % (42-52); Hemoglobin 11.4 g/dL (14.0-18.0); Mean Corpuscular HGB Conc 33 g/dL (31-36); Mean Corpuscular Hemoglobin 28 pg (27-31); Mean Corpuscular Volume 84 fL (80-94); Mean Platelet Volume 6.4 fL (7.4-10.4); Platelet Count 416 10^3/uL (150-450); Red Cell Distribution Width 15 % (10-15)
[2022-03-01 06:29] LABS: Calcium 7.7 mg/dL (8.6-10.3); Magnesium 2.5 mg/dL (1.9-2.7); Potassium 4.1 mmol/L (3.5-5.0); eGFR CKD-EPI 116.8 (>60)
[2022-03-01 08:43] LABS: RBC Morphology Normal (Normal)
[2022-03-01 08:44] LABS: ABS Eosinophils 0.2 10^3/ul (0-0.6); ABS Lymphocytes 1.2 10^3/ul (1.0-4.8); ABS Monocytes 1.1 10^3/ul (0-0.8); ABS Neutrophils 5.6 10^3/ul (1.5-7.7); Eosinophil % 2.1 %; Lymphocyte % 15.1 %
[2022-03-01] MEDS: Magnesium Hydroxide LIQ 30 ML UDC PO SCH ×2 (09:09→21:27)
[2022-03-01] MEDS: Polyethylene Glycol 3350 17 GM PACKET PO SCH ×4 (09:09→21:31)
[2022-03-01] MEDS: Venlafaxine XR 75 mg PO SCH (09:10)
[2022-03-01] MEDS: Buprenorp/Nalox 8-2 MG SL TAB PO SCH ×2 (09:11→21:28)
[2022-03-01] MEDS: Nicotine PATCH 14 MG/24 HR PATCH TRANSDERM SCH (09:16)
[2022-03-01] MEDS: guaiFENesin 100 mg/5 ml LIQ unit dose cup PO PRN (09:18)
[2022-03-01] MEDS: Benzocaine/Menthol LOZ PO PRN ×3 (09:19→22:15)
[2022-03-01] MEDS ORDERED: Magnesium Hydroxide LIQ 30 ML UDC PO PRN (18:04)
[2022-03-01] MEDS: Enoxaparin 40 MG/0.4 ML SYR SUBCUT SCH (21:26)
[2022-03-01] MEDS: Senna TAB 8.6 mg TAB PO SCH (21:28)
[2022-03-02] MEDS: Linezolid 600 MG IVPREMIX(*) 600 MG/300 ML BAG IVPB SCH ×3 (00:08→23:12)
[2022-03-02 07:18] LABS: Hematocrit 34 % (42-52); Hemoglobin 11.7 g/dL (14.0-18.0); Mean Corpuscular HGB Conc 34 g/dL (31-36); Mean Corpuscular Hemoglobin 29 pg (27-31); Mean Corpuscular Volume 84 fL (80-94); Mean Platelet Volume 6.1 fL (7.4-10.4); Platelet Count 416 10^3/uL (150-450); Red Blood Count 4.03 10^6 /uL (4.18-5.48); Red Cell Distribution Width 15 % (10-15); White Blood Count 10.3 10^3/uL (3.5-10.8)
[2022-03-02 07:52] LABS: Calcium 7.5 mg/dL (8.6-10.3); Potassium 4.7 mmol/L (3.5-5.0); eGFR CKD-EPI 115.2 (>60)
[2022-03-02] MEDS: Benzocaine/Menthol LOZ PO PRN ×2 (08:28→20:23)
[2022-03-02] MEDS: Magnesium Hydroxide LIQ 30 ML UDC PO SCH ×2 (09:58→20:25)
[2022-03-02] MEDS: Nicotine PATCH 14 MG/24 HR PATCH TRANSDERM SCH (09:59)
[2022-03-02] MEDS: Polyethylene Glycol 3350 17 GM PACKET PO SCH ×2 (09:59→20:26)
[2022-03-02] MEDS: Buprenorp/Nalox 8-2 MG SL TAB PO SCH ×2 (10:00→20:24)
[2022-03-02] MEDS: Venlafaxine XR 75 mg PO SCH (10:00)
[2022-03-02] MEDS ORDERED: NS 0.9% 500 ml BAG 500 ML IV ONE (14:10)
[2022-03-02] MEDS: Enoxaparin 40 MG/0.4 ML SYR SUBCUT SCH (20:21)
[2022-03-02] MEDS: Senna TAB 8.6 mg TAB PO SCH (20:26)
[2022-03-03 06:42] LABS: Calcium 7.5 mg/dL (8.6-10.3); Potassium 4.6 mmol/L (3.5-5.0); eGFR CKD-EPI 114.7 (>60)
[2022-03-03] MEDS: Nicotine PATCH 14 MG/24 HR PATCH TRANSDERM SCH (09:58)
[2022-03-03] MEDS: Buprenorp/Nalox 8-2 MG SL TAB PO SCH (09:59)
[2022-03-03] MEDS: Venlafaxine XR 75 mg PO SCH (09:59)
[2022-03-03 10:54] VITALS: BP 135/71
[2022-03-03] MEDS: Linezolid 600 MG IVPREMIX(*) 600 MG/300 ML BAG IVPB SCH (13:09)
== END 2022-03-03 16:00 | disposition home health service (06) | DRG 177 ==
LOC: ED 09:44 → EDHOLD 09:44 → MED 20:02 → SUATTDRO 02-21 17:33
PROVIDERS: ADMIT Hospitalist; ATTEND Internal Medicine